=== PATIENT | female | born 1955 | race Caucasian/White ===

== ENCOUNTER 2017-05-12 11:11 | Emergency (ER) | payer MEDICAID, OTHER ==
[~2017-05-12] VITALS: Ht 149.9 cm; Wt 47.6 kg
[2017-05-12 11:26] VITALS: BP 138/80
[2017-05-12] MEDS ORDERED: KETOROLAC TROMETH 30 MG/ML 1ML VIAL IV ONE (13:30)
== END 2017-05-12 13:51 | disposition home or self-care (01) ==
LOC: ER 11:11 → EDBD 11:11 → ER 13:51
DX: S76.011A Strain of muscle, fascia and tendon of right hip, initial encounter (principal); G40.909 Epilepsy, unspecified, not intractable, without status epilepticus; R42 Dizziness and giddiness; W18.39XA Other fall on same level, initial encounter; Y93.01 Activity, walking, marching and hiking; Y92.89 Other specified places as the place of occurrence of the external cause; Y99.8 Other external cause status
CPT/HCPCS: 70450; 71111; 72192; 99284; J1885

== ENCOUNTER 2017-06-28 16:27 | Emergency (ER) | payer MEDICAID | END 2017-06-28 17:53 | disposition left against medical advice (07) | LOC: ER 16:27 → EDBD 16:27 → ER 17:53 | DX: T65.91XA Toxic effect of unspecified substance, accidental (unintentional), initial encounter (principal); Z53.21 Procedure and treatment not carried out due to patient leaving prior to being seen by health care provider; Y92.89 Other specified places as the place of occurrence of the external cause ==

== ENCOUNTER 2017-06-29 12:47 | Emergency (ER) | payer MEDICAID ==
[~2017-06-29] VITALS: Ht 149.9 cm; Wt 47.6 kg
[2017-06-29 12:56] VITALS: BP 137/89
[2017-06-29 15:07] LABS: Basophils # (auto) 0.1 uL; Eosinophils # (auto) 0.1 uL; Hemoglobin 14.9 g/dL (12.2-16.2); Monocytes # (auto) 0.3 uL; Monocytes % (auto) 4.1 % (0.0-12.0)
[2017-06-29 15:09] LABS: Basophils % (auto) 1.6 % (0.0-2.0); Hematocrit 43.4 % (36.0-46.0); Lymphocytes # (auto) 1.9 uL; Lymphocytes % (auto) 27.1 % (10.0-50.0); Mean Corpuscular Hemoglobin 33.2 pg (28.0-32.0); Mean Corpuscular Hgb Conc. 34.4 g/dL (32.0-36.0); Mean Corpuscular Volume 96.7 fL (80.0-100.0); Neutrophils # (auto) 4.6 uL; Neutrophils % (auto) 65.2 % (37.0-80.0); Nucleated Red Blood Cells % 0.1 %; Red Blood Cells 4.49 10^6/uL (4.0-5.20)
[2017-06-29 15:20] LABS: Albumin 3.9 g/dL (3.4-5.0); BUN/Creatinine Ratio 15.4; Calcium 8.8 mg/dL (8.5-10.1); Potassium 3.7 mmol/L (3.5-5.1)
[2017-06-29 15:24] LABS: Acetaminophen < 2.0 ug/mL (10-30); Salicylate 5.1 mg/dL (2.8-20.0)
[2017-06-29 15:29] LABS: Bilirubin, Total 0.2 mg/dL (0.2-1.0); Total Protein 8.4 g/dL (6.4-8.2)
[2017-06-29 15:54] LABS: Platelet Count (auto) 462 10^3/uL (140-450)
== END 2017-06-29 16:45 | disposition left against medical advice (07) ==
LOC: ER 12:47
DX: T42.4X1A Poisoning by benzodiazepines, accidental (unintentional), initial encounter (principal); F17.210 Nicotine dependence, cigarettes, uncomplicated; M25.571 Pain in right ankle and joints of right foot; E78.5 Hyperlipidemia, unspecified; Z92.89 Personal history of other medical treatment
CPT/HCPCS: 36415; 73610; 80053; 80329; 85025

== ENCOUNTER 2018-08-01 17:19 | Emergency (ER) | payer MEDICAID ==
[2018-08-01 18:02] LABS: Urine Bacteria NONE SEEN /hpf (None Seen); Urine Blood Negative /uL (Negative); Urine Mucus FEW (None Seen); Urine Specific Gravity 1.039 (1.001-1.035); Urine WBC 3 /hpf (0 - 5)
[2018-08-01 18:40] VITALS: BP 144/93
[2018-08-01 19:18] LABS: Basophils # (auto) 0.1 uL; Eosinophils # (auto) 0 uL; Eosinophils % (auto) 0.4 % (0.0-7.0); Hematocrit 43.2 % (36.0-46.0); Hemoglobin 14.1 g/dL (12.2-16.2); Lymphocytes # (auto) 1.9 uL; Lymphocytes % (auto) 20.8 % (10.0-50.0); Mean Corpuscular Hemoglobin 32.6 pg (28.0-32.0); Mean Corpuscular Hgb Conc. 32.7 g/dL (32.0-36.0); Mean Corpuscular Volume 99.7 fL (80.0-100.0); Monocytes # (auto) 0.6 uL; Monocytes % (auto) 6.4 % (0.0-12.0); Neutrophils # (auto) 6.4 uL; Neutrophils % (auto) 71.4 % (37.0-80.0); Nucleated Red Blood Cells % 0.1 %; Platelet Count (auto) 190 10^3/uL (140-450); Red Blood Cells 4.33 10^6/uL (4.0-5.20); Red Cell Distribution Width 14.9 % (11.8-14.3)
[2018-08-01 19:35] LABS: Albumin 3.7 g/dL (3.4-5.0); BUN/Creatinine Ratio 13.1; Calcium 8.3 mg/dL (8.5-10.1); Potassium 3.8 mmol/L (3.5-5.1)
[2018-08-01 19:38] LABS: Bilirubin, Total 0.2 mg/dL (0.2-1.0); Total Protein 7.8 g/dL (6.4-8.2)
== END 2018-08-01 21:23 | disposition left against medical advice (07) ==
LOC: ER 17:19
DX: R11.2 Nausea with vomiting, unspecified (principal); R53.1 Weakness; Z53.21 Procedure and treatment not carried out due to patient leaving prior to being seen by health care provider
CPT/HCPCS: 36415; 72100; 80053; 81001; 82962; 85025; 93005

== ENCOUNTER 2018-10-06 00:08 | Emergency (ER) | payer MEDICAID ==
[~2018-10-06] VITALS: Ht 147.3 cm; Wt 59.0 kg
[2018-10-06 00:30] VITALS: BP 127/70
== END 2018-10-06 01:36 | disposition left against medical advice (07) ==
LOC: ER 00:08
DX: R07.81 Pleurodynia (principal); Z53.21 Procedure and treatment not carried out due to patient leaving prior to being seen by health care provider
CPT/HCPCS: 93005

== ENCOUNTER 2018-10-06 03:12 | Emergency (ER) | payer MEDICAID ==
[~2018-10-06] VITALS: Ht 165.1 cm; Wt 90.7 kg
[2018-10-06 03:24] VITALS: BP 110/63
== END 2018-10-06 03:34 | disposition left against medical advice (07) ==
LOC: EDBD 03:12 → ER 03:12
DX: M25.551 Pain in right hip (principal); Z53.21 Procedure and treatment not carried out due to patient leaving prior to being seen by health care provider

== ENCOUNTER 2018-10-10 11:11 | Emergency (ER) | payer MEDICAID ==
[~2018-10-10] VITALS: Ht 147.3 cm; Wt 52.6 kg
[2018-10-10] MEDS ORDERED: LEVETIRACETAM INJ 1,000 MG in D5W 5% 100 ML IV ONE (11:30)
[2018-10-10 12:28] LABS: Urine WBC None Seen /hpf (0 - 5)
[2018-10-10 13:19] LABS: Urine Bacteria FEW /hpf (None Seen); Urine Blood Negative /uL (Negative); Urine Specific Gravity 1.009 (1.001-1.035)
[2018-10-10 13:27] LABS: Alcohol, Urine < 3.0 mg/dL (0-5); Amphetamine Screen, Urine NEGATIVE (NEGATIVE); Barbiturate Scree,Urine NEGATIVE (NEGATIVE); Benzodiazephine Screen, Urine NEGATIVE (NEGATIVE); Cannabinoid Screen, Urine NEGATIVE (NEGATIVE); Cocaine Screen, Urine NEGATIVE (NEGATIVE); Opiate Scree,Urine NEGATIVE (NEGATIVE); Phencyclidine Screen, Urine NEGATIVE (NEGATIVE)
[2018-10-10 16:47] VITALS: BP 174/86
== END 2018-10-10 16:36 | disposition home or self-care (01) ==
LOC: ER 11:11
DX: T14.91XA Suicide attempt, initial encounter (principal); R56.9 Unspecified convulsions; E78.5 Hyperlipidemia, unspecified; I10 Essential (primary) hypertension; I25.2 Old myocardial infarction; F17.210 Nicotine dependence, cigarettes, uncomplicated; Z98.51 Tubal ligation status; X83.8XXA Intentional self-harm by other specified means, initial encounter; Y93.89 Activity, other specified; Y92.89 Other specified places as the place of occurrence of the external cause; Y99.8 Other external cause status
CPT/HCPCS: 36415; 80307; 80320; 81001; 93005; 94761; 96365; 99285; J1953; J7060

== ENCOUNTER 2019-01-06 11:05 | Emergency (ER) | payer MEDICAID ==
[~2019-01-06] VITALS: Ht 152.4 cm; Wt 54.4 kg
[2019-01-06] MEDS ORDERED: SODIUM CHLORIDE 0.9% 1,000 ML IV ONE (11:07)
[2019-01-06 11:32] LABS: Basophils # (auto) 0.1 uL; Eosinophils # (auto) 0 uL; Mean Corpuscular Hemoglobin 32.1 pg (28.0-32.0); Monocytes # (auto) 0.4 uL; Red Cell Distribution Width 15.6 % (11.8-14.3)
[2019-01-06 11:34] VITALS: BP 139/69
[2019-01-06 11:34] LABS: Basophils % (auto) 1.2 % (0.0-2.0); Eosinophils % (auto) 0.1 % (0.0-7.0); Hematocrit 39.4 % (36.0-46.0); Hemoglobin 13.6 g/dL (12.2-16.2); Lymphocytes # (auto) 1.3 uL; Lymphocytes % (auto) 13.1 % (10.0-50.0); Mean Corpuscular Hgb Conc. 34.5 g/dL (32.0-36.0); Neutrophils # (auto) 8.3 uL; Neutrophils % (auto) 81.6 % (37.0-80.0); Nucleated Red Blood Cells % 0.1 %; Red Blood Cells 4.24 10^6/uL (4.0-5.20); White Blood Cell 10.1 10^3/uL (4.4-10.8)
[2019-01-06 11:45] LABS: Albumin 3.8 g/dL (3.4-5.0); Anion Gap 6 (5-15); Blood Urea Nitrogen 15 mg/dL (7-18); Calcium 8.5 mg/dL (8.5-10.1); Carbon Dioxide 23 mmol/L (21-32); Chloride 108 mmol/L (98-107); Glucose 103 mg/dL (74-106); Sodium 137 mmol/L (136-145)
[2019-01-06 11:50] LABS: Alanine Aminotransferase 24 U/L (13-56); Alkaline Phosphatase 99 U/L (45-117); Aspartate Aminotransferase 20 U/L (15-37); BUN/Creatinine Ratio 25.9; Bilirubin, Total 0.2 mg/dL (0.2-1.0); GFR African American 135 mL/min; GFR Non-African American 112 mL/min; Total Protein 7.8 g/dL (6.4-8.2)
[2019-01-06 12:05] LABS: Platelet Count (auto) 501 10^3/uL (140-450)
[2019-01-06 12:21] LABS: Urine Bacteria NONE SEEN /hpf (None Seen); Urine Blood Negative /uL (Negative); Urine Mucus FEW (None Seen); Urine Specific Gravity 1.026 (1.001-1.035); Urine WBC 3 /hpf (0 - 5)
== END 2019-01-06 12:59 | disposition home or self-care (01) ==
LOC: EDUNIT# 11:05 → EDBD 11:05 → ER 11:12
DX: S76.011A Strain of muscle, fascia and tendon of right hip, initial encounter (principal); G40.909 Epilepsy, unspecified, not intractable, without status epilepticus; R42 Dizziness and giddiness; E78.5 Hyperlipidemia, unspecified; I10 Essential (primary) hypertension; F17.210 Nicotine dependence, cigarettes, uncomplicated; W18.39XA Other fall on same level, initial encounter; Y93.89 Activity, other specified; Y92.89 Other specified places as the place of occurrence of the external cause; Y99.8 Other external cause status
CPT/HCPCS: 36415; 70450; 72192; 80053; 81001; 84484; 85025; 96360; 99284; J7030

== ENCOUNTER 2021-08-24 20:47 | Inpatient (IN) | payer MEDICARE, MEDICAID ==
[~2021-08-24] VITALS: Ht 162.6 cm; Wt 54.0 kg
[2021-08-24] MEDS ORDERED: cefTRIAXone 1GM/50ML D5W 50 ML IV ONE (21:00)
[2021-08-24] MEDS ORDERED: ALBUTEROL SULF 2.5 MG/0.5ML(0.5%) NEB SOLN NEB ONE (21:00)
[2021-08-24] MEDS ORDERED: IPRATROPIUM BROM 0.5 MG/2.5ML INH SOL NEB ONE (21:00)
[2021-08-24] MEDS ORDERED: methylPREDNISolone SOD SUCC 125 MG/2 ML VL IV ONE (21:00)
[2021-08-24 21:27] LABS: Basophils # (auto) 0 10 ^3/uL (0-0.2); Lymphocytes # (auto) 2.2 10 ^3/uL (0.4-5.4); Monocytes # (auto) 0.4 10 ^3/uL (0-1.3)
[2021-08-24 21:30] LABS: Basophils % (auto) 0.8 % (0.0-2.0); Eosinophils # (auto) 0.2 10 ^3/uL (0-0.8); Eosinophils % (auto) 3.1 % (0.0-7.0); Hematocrit 38.3 % (36.0-46.0); Hemoglobin 12.7 g/dL (12.2-16.2); Lymphocytes % (auto) 41.6 % (10.0-50.0); Mean Corpuscular Hgb Conc. 33.2 g/dL (32.0-36.0); Mean Corpuscular Volume 102.3 fL (80.0-100.0); Monocytes % (auto) 8.5 % (0.0-12.0); Neutrophils # (auto) 2.4 10 ^3/uL (1.6-8.6); Red Blood Cells 3.75 10^6/uL (4.0-5.20); Red Cell Distribution Width 13.8 % (11.8-14.3); White Blood Cell 5.2 10^3/uL (4.4-10.8)
[2021-08-24 21:43] LABS: Albumin 3.5 g/dL (3.4-5.0); BUN/Creatinine Ratio 40.6; Calcium 8.8 mg/dL (8.5-10.1); Potassium 4.8 mmol/L (3.5-5.1)
[2021-08-24 21:45] LABS: Bilirubin, Total 0.2 mg/dL (0.2-1.0)
[2021-08-24 21:48] VITALS: BP 116/63
[2021-08-24 21:51] VITALS: BP 116/63
[2021-08-24 22:09] LABS: INR 0.91 (0.9-1.15)
[2021-08-24 22:12] LABS: Partial Thromboplastin Time 24.1 sec (24.6-33.4)
[2021-08-24 22:27] LABS: Urine Bacteria NONE SEEN /hpf (None Seen); Urine Blood Negative /uL (Negative); Urine Specific Gravity 1.024 (1.001-1.035); Urine WBC <1 /hpf (0 - 5)
[2021-08-24 22:40] LABS: Alcohol, Urine < 3.0 mg/dL (0-10); Amphetamine Screen, Urine NEGATIVE (NEGATIVE); Barbiturate Scree,Urine NEGATIVE (NEGATIVE); Benzodiazephine Screen, Urine NEGATIVE (NEGATIVE); Cannabinoid Screen, Urine NEGATIVE (NEGATIVE); Cocaine Screen, Urine NEGATIVE (NEGATIVE); Opiate Scree,Urine NEGATIVE (NEGATIVE); Phencyclidine Screen, Urine NEGATIVE (NEGATIVE)
[2021-08-25] MEDS ORDERED: HYDROcodone-ACET 5/325MG TAB PO ONE (02:30)
[2021-08-25] MEDS ORDERED: IOHEXOL 350 MG/ML 100ML IJ ONE (02:33)
[2021-08-25] MEDS ORDERED: LORazepam 2MG/ML-1ML VIAL IV ONE (03:30)
[2021-08-25] MEDS ORDERED: ALBUTEROL SULF 2.5 MG/0.5ML(0.5%) NEB SOLN NEB PRN (06:15)
[2021-08-25] MEDS ORDERED: ONDANSETRON HCL 4 MG/2 ML VIAL IV PRN (06:15)
[2021-08-25] MEDS ORDERED: NITROGLYCERIN 0.4 MG SL TAB SL PRN (06:15)
[2021-08-25] MEDS ORDERED: ACETAMINOPHEN 325 MG TAB PO PRN (06:15)
[2021-08-25] MEDS ORDERED: HYDROcodone-ACET 5/325MG TAB PO PRN (06:15)
[2021-08-25] MEDS ORDERED: IPRATROPIUM BROM 0.5 MG/2.5ML INH SOL NEB PRN (06:15)
[2021-08-25] MEDS ORDERED: MORPHINE SULFATE INJ 2 MG/ml SYRG IV PRN (06:15)
[2021-08-25] MEDS ORDERED: PANTOPRAZOLE 40 MG TAB PO SCH (10:00)
[2021-08-25 11:34] VITALS: BP 139/87
[2021-08-25] MEDS: levETIRAcetam 500 MG TAB PO SCH ×2 (11:41→21:51)
[2021-08-25] MEDS: METOPROLOL SUCCINATE XL 50 MG TAB PO SCH (11:44)
[2021-08-25] MEDS: ENOXAPARIN SOD 40 MG/0.4 ML SYRINGE SC SCH (11:46)
[2021-08-25] MEDS ORDERED: OXYCODONE W/ ACETAMINOPHEN 5/325MG TABLET PO PRN (12:30)
[2021-08-25 12:40] VITALS: BP 139/87
[2021-08-25 14:50] VITALS: BP 139/87
[2021-08-25] MEDS ORDERED: HYDR-3682 PO (15:21)
[2021-08-25] MEDS ORDERED: NICO21DI37 TOP (15:21)
[2021-08-25] MEDS ORDERED: OXYC15TA PO (15:21)
[2021-08-25] MEDS ORDERED: LEVE100020 PO (15:21)
[2021-08-25] MEDS ORDERED: AZIT250T9 PO (15:21)
[2021-08-25] MEDS ORDERED: OXYC-963 (15:21)
[2021-08-25] MEDS ORDERED: ALBU108A5 INH (15:21)
[2021-08-25] MEDS ORDERED: FLUT50SP NAS (15:21)
[2021-08-25] MEDS ORDERED: GABA300C10 PO (15:21)
[2021-08-25] MEDS ORDERED: METH4PAK3 (15:21)
[2021-08-25] MEDS: GABAPENTIN 300 MG CAP PO SCH ×2 (15:40→21:51)
[2021-08-25] MEDS ORDERED: AZITHROMYCIN 250 MG TAB PO ONE (19:00)
[2021-08-25] MEDS ORDERED: methylPREDNISolone SOD SUCC 40 MG/ML VL IV ONE (19:00)
[2021-08-25] MEDS ORDERED: cefTRIAXone 1GM/50ML D5W 50 ML IV ONE (19:00)
[2021-08-25] MEDS ORDERED: KETOROLAC TROMETH 60MG/2ML VIAL IM ONE (19:15)
[2021-08-25] MEDS: OXYCODONE W/ ACETAMINOPHEN 5/325MG TABLET PO PRN (20:45)
[2021-08-25] MEDS: TEMAZEPAM 15 MG CAP PO PRN (21:52)
[2021-08-25 22:00] VITALS: BP 157/90
[2021-08-25] MEDS ORDERED: PERCOT PO (22:08)
[2021-08-25] MEDS ORDERED: CLON0.5T PO (22:08)
[2021-08-26 05:00] VITALS: BP 120/81
[2021-08-26 05:18] LABS: Basophils # (auto) 0 10 ^3/uL (0-0.2); Basophils % (auto) 0.4 % (0.0-2.0); Eosinophils # (auto) 0 10 ^3/uL (0-0.8); Eosinophils % (auto) 0.1 % (0.0-7.0); Hematocrit 34.8 % (36.0-46.0); Hemoglobin 11.6 g/dL (12.2-16.2); Lymphocytes # (auto) 0.8 10 ^3/uL (0.4-5.4); Lymphocytes % (auto) 12.5 % (10.0-50.0); Mean Corpuscular Hemoglobin 33.8 pg (28.0-32.0); Mean Corpuscular Hgb Conc. 33.4 g/dL (32.0-36.0); Mean Corpuscular Volume 101.3 fL (80.0-100.0); Monocytes # (auto) 0.2 10 ^3/uL (0-1.3); Monocytes % (auto) 3.2 % (0.0-12.0); Neutrophils # (auto) 5.3 10 ^3/uL (1.6-8.6); Neutrophils % (auto) 83.8 % (37.0-80.0); Nucleated Red Blood Cells % 0.1 %; Red Blood Cells 3.43 10^6/uL (4.0-5.20); Red Cell Distribution Width 13.7 % (11.8-14.3); White Blood Cell 6.3 10^3/uL (4.4-10.8)
[2021-08-26] MEDS: OXYCODONE W/ ACETAMINOPHEN 5/325MG TABLET PO PRN ×3 (05:24→18:48)
[2021-08-26] MEDS: GABAPENTIN 300 MG CAP PO SCH ×3 (05:24→21:44)
[2021-08-26 05:43] LABS: Albumin 2.8 g/dL (3.4-5.0); Calcium 8.3 mg/dL (8.5-10.1); Potassium 4.6 mmol/L (3.5-5.1)
[2021-08-26 05:48] LABS: BUN/Creatinine Ratio 39.6; Bilirubin, Total 0.2 mg/dL (0.2-1.0); Total Protein 6.4 g/dL (6.4-8.2)
[2021-08-26 07:30] VITALS: BP 150/98
[2021-08-26 09:00] VITALS: BP 158/96
[2021-08-26] MEDS: cefTRIAXone 1GM/50ML D5W 50 ML IV SCH (10:32)
[2021-08-26] MEDS: methylPREDNISolone SOD SUCC 40 MG/ML VL IV SCH ×2 (10:33→21:44)
[2021-08-26] MEDS: METOPROLOL SUCCINATE XL 50 MG TAB PO SCH (10:33)
[2021-08-26] MEDS: levETIRAcetam 500 MG TAB PO SCH ×2 (10:33→21:44)
[2021-08-26] MEDS: AZITHROMYCIN 250 MG TAB PO SCH (10:34)
[2021-08-26] MEDS: ENOXAPARIN SOD 40 MG/0.4 ML SYRINGE SC SCH (10:34)
[2021-08-26] MEDS ORDERED: PERCOT PO (11:44)
[2021-08-26] MEDS ORDERED: EZET10TA24 PO (11:44)
[2021-08-26] MEDS ORDERED: METO25TA93 PO (11:44)
[2021-08-26] MEDS ORDERED: ASPI81CH74 PO (11:44)
[2021-08-26] MEDS ORDERED: NIC21P TOP (11:44)
[2021-08-26 13:00] VITALS: BP 155/93
[2021-08-26 17:00] VITALS: BP 145/90
[2021-08-26] MEDS: TEMAZEPAM 15 MG CAP PO PRN (21:45)
[2021-08-26 22:00] VITALS: BP 156/79
[2021-08-27] MEDS: OXYCODONE W/ ACETAMINOPHEN 5/325MG TABLET PO PRN (02:27)
[2021-08-27 05:00] VITALS: BP 167/99
[2021-08-27] MEDS: GABAPENTIN 300 MG CAP PO SCH (05:35)
[2021-08-27] MEDS ORDERED: MORPHINE SULFATE INJ 2 MG/ml SYRG IV PRN (06:00)
[2021-08-27 07:30] VITALS: BP 158/96
[2021-08-27 09:00] VITALS: BP 148/93
[2021-08-27] MEDS: cefTRIAXone 1GM/50ML D5W 50 ML IV SCH (09:29)
[2021-08-27] MEDS: levETIRAcetam 500 MG TAB PO SCH (09:29)
[2021-08-27] MEDS: methylPREDNISolone SOD SUCC 40 MG/ML VL IV SCH (09:29)
[2021-08-27] MEDS: METOPROLOL SUCCINATE XL 50 MG TAB PO SCH (09:30)
[2021-08-27] MEDS: AZITHROMYCIN 250 MG TAB PO SCH (09:31)
[2021-08-27] MEDS: ENOXAPARIN SOD 40 MG/0.4 ML SYRINGE SC SCH (09:31)
== END 2021-08-27 11:24 | disposition left against medical advice (07) | DRG 189 ==
LOC: ER 20:47 → EDBD 20:47 → TELE 08-25 06:19 → TELE-WESTW 08-25 10:17
PROVIDERS: ADMIT Nurse Practitioner; ATTEND Internal Medicine Nephrology
PROC: 5A09357 Assistance with Respiratory Ventilation, Less than 24 Consecutive Hours, Continuous Positive Airway Pressure (ICD-10-PCS; principal; 2021-08-24)
DX: J96.21 Acute and chronic respiratory failure with hypoxia (principal); J44.1 Chronic obstructive pulmonary disease with (acute) exacerbation; J98.11 Atelectasis; E78.5 Hyperlipidemia, unspecified; Z20.822 Contact with and (suspected) exposure to COVID-19; F17.210 Nicotine dependence, cigarettes, uncomplicated; Z53.29 Procedure and treatment not carried out because of patient's decision for other reasons; I10 Essential (primary) hypertension; Z79.899 Other long term (current) drug therapy; Z86.16 Personal history of COVID-19; Z79.891 Long term (current) use of opiate analgesic
CPT/HCPCS: 36415; 36600; 71045; 71275; 72110; 73502; 80053; 80307; 81001; 82805; 83605; 83880; 84484; 85025; 85379; 85610; 85730; 87040; 93005; 94640; 94660; 96365; 96375; 99291; G0378; J0696; J1885

== ENCOUNTER 2021-08-28 07:42 | Emergency (ER) | payer MEDICARE, MEDICAID ==
[~2021-08-28 07:42] MED LIST: ALBU108A5 INH; ASPI81CH74 PO; CLON0.5T PO; EZET10TA24 PO; FLUT50SP NAS; GABA300C10 PO; HYDR-3682 PO; LEVE100020 PO; METO25TA93 PO; NIC21P TOP; PERCOT PO
[2021-08-28 08:07] VITALS: BP 144/80
[2021-08-28 08:26] LABS: Basophils # (auto) 0 10 ^3/uL (0-0.2); Basophils % (auto) 0.3 % (0.0-2.0); Eosinophils # (auto) 0 10 ^3/uL (0-0.8); Eosinophils % (auto) 0.3 % (0.0-7.0); Hematocrit 39.3 % (36.0-46.0); Hemoglobin 12.7 g/dL (12.2-16.2); Lymphocytes # (auto) 3.5 10 ^3/uL (0.4-5.4); Lymphocytes % (auto) 39.7 % (10.0-50.0); Mean Corpuscular Hemoglobin 33.8 pg (28.0-32.0); Mean Corpuscular Hgb Conc. 32.3 g/dL (32.0-36.0); Mean Corpuscular Volume 104.7 fL (80.0-100.0); Monocytes # (auto) 0.5 10 ^3/uL (0-1.3); Monocytes % (auto) 5.6 % (0.0-12.0); Neutrophils # (auto) 4.7 10 ^3/uL (1.6-8.6); Neutrophils % (auto) 54.1 % (37.0-80.0); Nucleated Red Blood Cells % 0.1 %; Red Blood Cells 3.75 10^6/uL (4.0-5.20); White Blood Cell 8.8 10^3/uL (4.4-10.8)
[2021-08-28 08:46] LABS: Albumin 3.5 g/dL (3.4-5.0); BUN/Creatinine Ratio 37.5; Calcium 8.8 mg/dL (8.5-10.1); Potassium 3.9 mmol/L (3.5-5.1)
[2021-08-28 08:49] LABS: Bilirubin, Total 0.1 mg/dL (0.2-1.0); Total Protein 7.4 g/dL (6.4-8.2)
== END 2021-08-28 10:57 | disposition left against medical advice (07) ==
LOC: EDBD → ER 07:42
DX: J44.1 Chronic obstructive pulmonary disease with (acute) exacerbation (principal); F19.10 Other psychoactive substance abuse, uncomplicated; E78.5 Hyperlipidemia, unspecified; I10 Essential (primary) hypertension; F17.210 Nicotine dependence, cigarettes, uncomplicated; Z98.51 Tubal ligation status; Z88.6 Allergy status to analgesic agent
CPT/HCPCS: 36415; 80053; 83880; 84484; 85025; 93005

== ENCOUNTER 2021-09-01 10:55 | Emergency (ER) | payer MEDICARE, MEDICAID ==
[~2021-09-01] VITALS: Ht 154.9 cm; Wt 55.0 kg
[2021-09-01 11:23] VITALS: BP 126/108
== END 2021-09-01 12:20 | disposition left against medical advice (07) ==
LOC: EDBD 10:55 → EDUNIT# 10:55 → ER 11:09
DX: R06.02 Shortness of breath (principal); E78.5 Hyperlipidemia, unspecified; I10 Essential (primary) hypertension; Z98.51 Tubal ligation status
CPT/HCPCS: 93005

== ENCOUNTER 2022-06-13 13:16 | Inpatient (IN) | payer OTHER, MEDICARE, MEDICAID ==
[~2022-06-13] VITALS: Ht 149.9 cm; Wt 53.0 kg
[2022-06-13 14:03] LABS: Basophils # (auto) 0.1 10 ^3/uL (0-0.2); Basophils % (auto) 0.9 % (0.0-2.0); Eosinophils # (auto) 0.1 10 ^3/uL (0-0.8); Eosinophils % (auto) 0.7 % (0.0-7.0); Hematocrit 30.2 % (36.0-46.0); Hemoglobin 10.1 g/dL (12.2-16.2); Lymphocytes # (auto) 0.3 10 ^3/uL (0.4-5.4); Lymphocytes % (auto) 3.2 % (10.0-50.0); Mean Corpuscular Hemoglobin 33.6 pg (28.0-32.0); Mean Corpuscular Hgb Conc. 33.5 g/dL (32.0-36.0); Mean Corpuscular Volume 100.3 fL (80.0-100.0); Monocytes # (auto) 0.7 10 ^3/uL (0-1.3); Monocytes % (auto) 7.9 % (0.0-12.0); Neutrophils # (auto) 7.9 10 ^3/uL (1.6-8.6); Neutrophils % (auto) 87.3 % (37.0-80.0); Nucleated Red Blood Cells % 0.2 %; Red Blood Cells 3.01 10^6/uL (4.0-5.20); Red Cell Distribution Width 14.5 % (11.8-14.3); White Blood Cell 9.1 10^3/uL (4.4-10.8)
[2022-06-13 14:37] LABS: INR 1.16 (0.9-1.15); Partial Thromboplastin Time 30.6 sec (24.6-33.4)
[2022-06-13 14:49] LABS: Potassium 3.6 mmol/L (3.5-5.1)
[2022-06-13 14:57] LABS: Albumin 3.4 g/dL (3.4-5.0); BUN/Creatinine Ratio 42.9 (10.0-20.0); Bilirubin, Total 0.7 mg/dL (0.2-1.0); Calcium 8.5 mg/dL (8.5-10.1); Total Protein 6.2 g/dL (6.4-8.2)
[2022-06-13] MEDS ORDERED: FUROSEMIDE 40 MG/4 ML VIAL IV ONE (16:00)
[2022-06-13] MEDS ORDERED: NITROGLYCERIN 0.4 MG SL TAB SL ONE (16:30)
[2022-06-13] MEDS ORDERED: NITROGLYCERIN 0.4 MG SL TAB SL PRN (17:00)
[2022-06-13] MEDS ORDERED: ALBUTEROL SULF 2.5 MG/0.5ML(0.5%) NEB SOLN NEB PRN (17:00)
[2022-06-13] MEDS ORDERED: HYDROcodone-ACET 5/325MG TAB PO PRN (17:00)
[2022-06-13] MEDS ORDERED: MORPHINE SULFATE INJ 2 MG/ml SYRG IV PRN (17:00)
[2022-06-13] MEDS ORDERED: ENOXAPARIN SOD 100 MG/1 ML SYRINGE SC ONE (17:00)
[2022-06-13] MEDS ORDERED: ACETAMINOPHEN 325 MG TAB PO PRN (17:00)
[2022-06-13] MEDS ORDERED: ENOXAPARIN SOD 60 MG/0.6 ML SYRINGE SC ONE (17:15)
[2022-06-13] MEDS: IPRATROPIUM BROM 0.5 MG/2.5ML INH SOL NEB SCH ×2 (17:41→22:00)
[2022-06-13] MEDS: ALBUTEROL SULF 2.5 MG/0.5ML(0.5%) NEB SOLN NEB SCH ×2 (17:41→22:00)
[2022-06-13 17:52] LABS: Cholesterol 157 mg/dL (< 200); HDL Cholesterol 68 mg/dL (40-59); LDL Cholesterol 70 mg/dL (< 100); Triglycerides 70 mg/dL (< 150)
[2022-06-13 18:30] VITALS: BP 141/73
[2022-06-13] MEDS: MORPHINE SULFATE INJ 2 MG/ml SYRG IV PRN (18:39)
[2022-06-13 19:24] LABS: Urine Bacteria NONE SEEN /hpf (None Seen); Urine Blood Negative /uL (Negative); Urine Hyaline Cast FEW /lpf (0 - 2); Urine WBC 1 /hpf (0 - 5)
[2022-06-13] MEDS ORDERED: IOHEXOL 350 MG/ML 100ML IJ ONE (20:00)
[2022-06-13] MEDS: TEMAZEPAM 15 MG CAP PO PRN (20:54)
[2022-06-13] MEDS: GABAPENTIN 300 MG CAP PO PRN (21:06)
[2022-06-13] MEDS ORDERED: clonazePAM 0.5 MG TAB PO SCH (22:00)
[2022-06-13] MEDS: levETIRAcetam 500 MG TAB PO SCH (23:45)
[2022-06-14] VITALS (10 sets, daily range): BP systolic 127–148; BP diastolic 64–79
[2022-06-14] MEDS: MORPHINE SULFATE INJ 2 MG/ml SYRG IV PRN ×4 (01:00→22:03)
[2022-06-14] MEDS: IPRATROPIUM BROM 0.5 MG/2.5ML INH SOL NEB SCH ×7 (01:41→21:21)
[2022-06-14] MEDS: ALBUTEROL SULF 2.5 MG/0.5ML(0.5%) NEB SOLN NEB SCH ×7 (01:42→21:21)
[2022-06-14] MEDS: GABAPENTIN 300 MG CAP PO PRN ×2 (05:12→20:05)
[2022-06-14 05:39] LABS: Basophils # (auto) 0 10 ^3/uL (0-0.2); Basophils % (auto) 0.4 % (0.0-2.0); Eosinophils # (auto) 0.1 10 ^3/uL (0-0.8); Eosinophils % (auto) 0.8 % (0.0-7.0); Hematocrit 34.1 % (36.0-46.0); Hemoglobin 11.4 g/dL (12.2-16.2); Lymphocytes # (auto) 1.4 10 ^3/uL (0.4-5.4); Lymphocytes % (auto) 16.8 % (10.0-50.0); Mean Corpuscular Hgb Conc. 33.4 g/dL (32.0-36.0); Mean Corpuscular Volume 98.8 fL (80.0-100.0); Monocytes # (auto) 0.7 10 ^3/uL (0-1.3); Monocytes % (auto) 9.2 % (0.0-12.0); Neutrophils # (auto) 5.9 10 ^3/uL (1.6-8.6); Neutrophils % (auto) 72.8 % (37.0-80.0); Nucleated Red Blood Cells % 0.6 %; Red Blood Cells 3.46 10^6/uL (4.0-5.20); Red Cell Distribution Width 14.4 % (11.8-14.3); White Blood Cell 8.1 10^3/uL (4.4-10.8)
[2022-06-14 05:58] LABS: Calcium 8.6 mg/dL (8.5-10.1); Potassium 3.3 mmol/L (3.5-5.1)
[2022-06-14 06:04] LABS: Albumin 3.1 g/dL (3.4-5.0); BUN/Creatinine Ratio 22.2 (10.0-20.0); Bilirubin, Total 0.6 mg/dL (0.2-1.0); Total Protein 6.9 g/dL (6.4-8.2)
[2022-06-14] MEDS: ENOXAPARIN SOD 60 MG/0.6 ML SYRINGE SC SCH ×2 (07:04→17:21)
[2022-06-14] MEDS ORDERED: METOPROLOL SUCCINATE XL 50 MG TAB PO SCH (10:00)
[2022-06-14] MEDS ORDERED: FUROSEMIDE 20 MG/2 ML VIAL IV SCH (10:00)
[2022-06-14] MEDS: ASPirin 81 mg TAB PO SCH (11:28)
[2022-06-14] MEDS: levETIRAcetam 500 MG TAB PO SCH ×2 (11:29→21:01)
[2022-06-14] MEDS: METOPROLOL SUCCINATE XL 50 MG TAB PO SCH (11:30)
[2022-06-14] MEDS: NICOTINE 21MG/24 HR TOPICAL PATCH TD SCH (11:31)
[2022-06-14] MEDS: NITROGLYCERIN 0.2MG/HR TOPICAL PATCH TD SCH (11:42)
[2022-06-14] MEDS ORDERED: fentaNYL CITRATE 100 MCG/2 ML VL ONE (12:43)
[2022-06-14] MEDS ORDERED: ANGIOMAX 250 MG VIAL IV ONE (12:43)
[2022-06-14] MEDS ORDERED: VERAPAMIL 2.5MG/ML INJ 2ML VIAL IV ONE (12:43)
[2022-06-14] MEDS ORDERED: MIDAZOLAM HCL 2MG/2ML 2ml VIAL (1mg/ml) ONE (12:43)
[2022-06-14] MEDS ORDERED: SODIUM CHL 0.9% 50 ML ONE (12:44)
[2022-06-14] MEDS ORDERED: LIDOCAINE 2%HCL (LOCAL ANESTH.) INJ 20ML MDV ONE (12:44)
[2022-06-14] MEDS ORDERED: IODIXANOL 320MG/ML 100ML BTL IV ONE ×2 (12:44→13:51)
[2022-06-14] MEDS ORDERED: CLOPIDOGREL 300 MG TAB ONE (13:59)
[2022-06-14] MEDS ORDERED: fentaNYL CITRATE 100 MCG/2 ML VL IV ONE (14:30)
[2022-06-14] MEDS ORDERED: SODIUM CHLORIDE 0.9% 1,000 ML IV SCH (14:30)
[2022-06-14] MEDS: TEMAZEPAM 15 MG CAP PO PRN (22:54)
[2022-06-15] MEDS ORDERED: POTASSIUM CHL 20 Meq TABLET PO ONE (00:15)
[2022-06-15] MEDS: ALBUTEROL SULF 2.5 MG/0.5ML(0.5%) NEB SOLN NEB SCH ×3 (02:18→10:00)
[2022-06-15] MEDS: IPRATROPIUM BROM 0.5 MG/2.5ML INH SOL NEB SCH ×3 (02:18→10:00)
[2022-06-15] MEDS: MORPHINE SULFATE INJ 2 MG/ml SYRG IV PRN ×2 (02:33→08:00)
[2022-06-15 05:00] VITALS: BP 139/70
[2022-06-15] MEDS: ENOXAPARIN SOD 60 MG/0.6 ML SYRINGE SC SCH (05:52)
[2022-06-15 07:08] LABS: BUN/Creatinine Ratio 19.4 (10.0-20.0); Calcium 8.5 mg/dL (8.5-10.1); Magnesium 1.5 mg/dL (1.6-2.6); Potassium 3.6 mmol/L (3.5-5.1)
[2022-06-15 07:20] LABS: Basophils # (auto) 0 10 ^3/uL (0-0.2); Basophils % (auto) 0.4 % (0.0-2.0); Eosinophils # (auto) 0 10 ^3/uL (0-0.8); Eosinophils % (auto) 0.1 % (0.0-7.0); Hematocrit 34.7 % (36.0-46.0); Hemoglobin 11.6 g/dL (12.2-16.2); Lymphocytes % (auto) 13.2 % (10.0-50.0); Mean Corpuscular Hemoglobin 32.8 pg (28.0-32.0); Mean Corpuscular Hgb Conc. 33.4 g/dL (32.0-36.0); Monocytes # (auto) 0.7 10 ^3/uL (0-1.3); Monocytes % (auto) 9.4 % (0.0-12.0); Neutrophils # (auto) 5.8 10 ^3/uL (1.6-8.6); Neutrophils % (auto) 76.9 % (37.0-80.0); Nucleated Red Blood Cells % 0.3 %; Red Blood Cells 3.54 10^6/uL (4.0-5.20); Red Cell Distribution Width 14.1 % (11.8-14.3); White Blood Cell 7.5 10^3/uL (4.4-10.8)
[2022-06-15 09:00] VITALS: BP 155/71
[2022-06-15] MEDS ORDERED: ONDANSETRON HCL 4 MG/2 ML VIAL IV PRN (09:00)
[2022-06-15] MEDS ORDERED: LOPERAMIDE HCL 2 MG CAP/TAB PO PRN (09:00)
[2022-06-15] MEDS ORDERED: CLOP75TA28 PO (09:08)
[2022-06-15] MEDS ORDERED: METO-6 PO (09:08)
[2022-06-15] MEDS ORDERED: ASPI-325 PO (09:08)
[2022-06-15] MEDS: ASPirin 81 mg TAB PO SCH (09:46)
[2022-06-15] MEDS: levETIRAcetam 500 MG TAB PO SCH (09:46)
[2022-06-15] MEDS: METOPROLOL SUCCINATE XL 50 MG TAB PO SCH (09:47)
[2022-06-15] MEDS: NICOTINE 21MG/24 HR TOPICAL PATCH TD SCH (09:51)
[2022-06-15] MEDS: NITROGLYCERIN 0.2MG/HR TOPICAL PATCH TD SCH (09:55)
[2022-06-15] MEDS ORDERED: CLOPIDOGREL BISULFATE 75 MG TAB PO SCH (10:00)
[2022-06-15] MEDS: GABAPENTIN 300 MG CAP PO PRN (10:15)
[2022-06-15] MEDS ORDERED: ROSU5TAB5 PO (10:28)
[2022-06-15 11:53] VITALS: BP 142/74
[2022-06-15 13:00] VITALS: BP 142/74
== END 2022-06-15 13:35 | disposition hospice, home (50) | DRG 246 ==
LOC: ER 13:16 → EDBD 13:16 → TELE 16:55 → TELE-CENTR 06-14 09:20
PROVIDERS: ADMIT Nurse Practitioner Family; ATTEND Internal Medicine Geriatric Medicine
PROC: 027034Z Dilation of Coronary Artery, One Artery with Drug-eluting Intraluminal Device, Percutaneous Approach (ICD-10-PCS; principal; 2022-06-14)
PROC: 4A023N7 Measurement of Cardiac Sampling and Pressure, Left Heart, Percutaneous Approach (ICD-10-PCS; 2022-06-14)
PROC: B2111ZZ Fluoroscopy of Multiple Coronary Arteries using Low Osmolar Contrast (ICD-10-PCS; 2022-06-14)
PROC: B2151ZZ Fluoroscopy of Left Heart using Low Osmolar Contrast (ICD-10-PCS; 2022-06-14)
PROC: 4A033BC Measurement of Arterial Pressure, Coronary, Percutaneous Approach (ICD-10-PCS; 2022-06-14)
DX: I21.4 Non-ST elevation (NSTEMI) myocardial infarction (principal); I50.31 Acute diastolic (congestive) heart failure; J96.10 Chronic respiratory failure, unspecified whether with hypoxia or hypercapnia; J44.9 Chronic obstructive pulmonary disease, unspecified; R56.9 Unspecified convulsions; I48.91 Unspecified atrial fibrillation; R73.9 Hyperglycemia, unspecified; E78.5 Hyperlipidemia, unspecified; E87.6 Hypokalemia; F17.200 Nicotine dependence, unspecified, uncomplicated; I25.10 Atherosclerotic heart disease of native coronary artery without angina pectoris; Z51.5 Encounter for palliative care; Z79.82 Long term (current) use of aspirin; Z88.8 Allergy status to other drugs, medicaments and biological substances; Z82.49 Family history of ischemic heart disease and other diseases of the circulatory system; Z99.81 Dependence on supplemental oxygen; I11.0 Hypertensive heart disease with heart failure
CPT/HCPCS: 36415; 51702; 71045; 71275; 76937; 80048; 80053; 80061; 81001; 83735; 83880; 84443; 84484; 85025; 85379; 85610; 85730; 92928; 93005; 93306; 93458; 93571; 94640; 96374; 97163; 99152; 99153; C1874; G0378; J2250; Q9967